=== PATIENT | female | born 1990 | race Caucasian/White ===

== ENCOUNTER → 2022-04-20 | Outpatient (CLI) | payer OTHER ==
[2022-04-25 15:10] LABS: HPV 16 Negative (Negative); HPV 18 Negative (Negative); HPV OTHER HR TYPES Negative (Negative)
== END | disposition home or self-care (01) ==
LOC: LAB SHORT 13:30 → LAB 13:30
PROVIDERS: Family Medicine
DX: Z01.419 Encounter for gynecological examination (general) (routine) without abnormal findings (principal)
CPT/HCPCS: 87624; G0145

== ENCOUNTER 2023-05-04 14:26 | Emergency (ER) | payer OTHER ==
[~2023-05-04] VITALS: Ht 162.6 cm; Wt 54.0 kg
[2023-05-04 14:57] LABS: BASOPHILS ABSOLUTE AUTO 0.11 K/mm3 (0.00-0.23); BASOPHILS PERCENT AUTO 1 % (0-2); EOSINOPHILS PERCENT AUTO 1 % (0-6); Hematocrit 38.7 % (33.0-51.0); Hemoglobin 13.2 g/dL (11.5-16.0); IMMATURE GRAN ABSOLUTE AUTO 0.02 K/mm3 (0.00-0.10); IMMATURE GRAN PERCENT AUTO 0 % (0-1); LYMPHOCYTES ABSOLUTE AUTO 2.23 K/mm3 (0.84-5.20); LYMPHOCYTES PERCENT AUTO 27 % (21-46); MONOCYTES ABSOLUTE AUTO 0.66 K/mm3 (0.16-1.47); MONOCYTES PERCENT AUTO 8 % (4-13); Mean Corpuscular HGB 30.6 pg (26.0-34.0); Mean Corpuscular HGB Conc 34.1 g/dL (31.5-36.5); Mean Corpuscular Volume 90 fL (80-100); Mean Platelet Volume 8.9 fL (9.1-12.4); NEUTROPHILS ABSOLUTE AUTO 5.24 K/mm3 (1.96-9.15); NEUTROPHILS PERCENT AUTO 63 % (41-73); Platelet Count 414 K/mm3 (150-400); RDW Coefficient Variation 11.9 % (11.7-14.2); RDW Standard Deviation 38.9 fL (35.1-46.3); Red Blood Cell Count 4.32 M/mm3 (3.80-5.20); White Blood Cell Count 8.36 K/mm3 (4.00-11.30)
[2023-05-04 15:23] LABS: Albumin, Blood 4.4 g/dL (3.4-5.0); Albumin/Globulin Ratio 1.3 (0.8-1.8); Bilirubin, Total 0.4 mg/dL (0.1-1.0); Bun/Creatinine Ratio 16.2 (12.0-20.0); Creatinine, Blood 0.62 mg/dL (0.40-1.00); Globulin, Blood 3.5 g/dL (2.2-4.0); Potassium, Blood 3.5 mmol/L (3.5-5.5); Total Protein, Blood 7.9 g/dL (6.4-8.2)
[2023-05-04 18:06] VITALS: BP 119/83
== END 2023-05-04 18:06 | disposition home or self-care (01) ==
LOC: ER 14:26
PROVIDERS: Physician Assistant
DX: O07.1 Delayed or excessive hemorrhage following failed attempted termination of pregnancy (principal); O99.891 Other specified diseases and conditions complicating pregnancy; R39.9 Unspecified symptoms and signs involving the genitourinary system; Z3A.01 Less than 8 weeks gestation of pregnancy
CPT/HCPCS: 76856; 80053; 84702; 85025; 99284-25

== ENCOUNTER 2023-05-09 09:41 | Day surgery (SDC) | payer OTHER ==
[~2023-05-09] VITALS: Ht 162.6 cm; Wt 52.7 kg
--- NOTE | 2023-05-09 10:15 | NUR ---
05/09/23 1015 MARIA VICTORIA PURDY PRE-OP TEACHING COMPLETED. PT A&O X4, COOPERATIVE WITH CARE. CALL LIGHT WITHIN REACH.
--- NOTE | 2023-05-09 11:16 | NUR ---
05/09/23 1116 Judy Nelson, HEAD ON PILLOW, ARMS SECURED ON PADDED ARM BOARDS.
[2023-05-09 12:04] VITALS: BP 90/60
--- NOTE | 2023-05-09 12:04 | NUR ---
05/09/23 1204 Yudi Uribe PT IS EATING AND RESTING COMFORTABLY. PT REPORTS NO PAIN.
== END 2023-05-09 12:19 | disposition home or self-care (01) ==
LOC: ORSCSDS 09:41
PROVIDERS: Obstetrics & Gynecology
PROC: 10D17ZZ Extraction of Products of Conception, Retained, Via Natural or Artificial Opening (ICD-10-PCS; principal; 2023-05-09 11:00)
DX: O07.4 Failed attempted termination of pregnancy without complication (principal)
CPT/HCPCS: 88305; J0690; J1100; J1885; J2210; J2250; J2405; J2704; J3010; J7120